=== PATIENT | female | born 1975 | race Caucasian/White ===

== ENCOUNTER 2024-06-15 10:33 | Outpatient (REF) | payer OTHER, SELFPAY ==
[2024-06-16 15:24] LABS: Immunoglobulin E 245 kU/L (<OR=114)
== END 2024-06-15 10:34 | disposition home or self-care (01) ==
LOC: HO.10HDL 10:33
PROVIDERS: Visit Provider Otolaryngology
DX: J30.89 Other allergic rhinitis (principal)
CPT/HCPCS: 36415; 82785; 86003

== ENCOUNTER 2024-12-25 11:18 | Outpatient (REF) | payer OTHER, SELFPAY ==
[2024-12-25 13:26] LABS: Estimated Average Glucose 183 mg/dL
[2024-12-25 13:27] LABS: Alanine Aminotransferase 22 U/L (0-31); Albumin Level 3.9 g/dL (3.5-5.0); Alkaline Phosphatase 76 U/L (39-117); Anion Gap 10 (12-20); Aspartate Amino Transferase 20 U/L (5-31); Bilirubin Total 0.9 mg/dL (0.0-1.0); Blood Urea Nitrogen 11 mg/dL (9-16); Calcium 8.9 mg/dL (8.4-10.2); Carbon Dioxide 29 mmol/L (22-29); Chloride 103 mmol/L (96-108); Estimated Glomerular Filt Rate > 60; Glucose Random 193 mg/dL (60-115); Potassium 4.9 mmol/L (3.3-5.1); Sodium 137 mmol/L (135-145); Total Protein 7.6 g/dL (6.5-8.0)
== END 2024-12-25 11:19 | disposition home or self-care (01) ==
LOC: HO.10HDL 11:18
PROVIDERS: Visit Provider Internal Medicine
DX: E11.9 Type 2 diabetes mellitus without complications (principal); E78.00 Pure hypercholesterolemia, unspecified; I10 Essential (primary) hypertension; R63.5 Abnormal weight gain
CPT/HCPCS: 36415; 80053; 83036